=== PATIENT | female | born 1990 | race Caucasian/White ===

== ENCOUNTER 2017-09-02 11:19 | Emergency (ER) | payer OTHER ==
[2017-09-02] MEDS: ACETAMINOPHEN 500 MG TAB PO (11:47)
[2017-09-02] MEDS: IBUPROFEN 200 MG TAB PO (11:47)
== END 2017-09-02 15:51 | disposition home or self-care (01) ==
LOC: FTE 11:19
DX: M79.645 Pain in left finger(s) (principal)
CPT/HCPCS: 29130; 73130-LT; 99284-25